=== PATIENT | female | born 1940 | race Native Hawaiian/Other Pacific Islander ===

== ENCOUNTER 2016-10-10 12:14 | Inpatient (IN) | payer OTHER ==
[~2016-10-10] VITALS: Ht 165.1 cm; Wt 66.9 kg
[~2016-10-10 12:14] MED LIST: CEFTIN250 MG OR; CEPACOL SORE TH1 LO1 MT; CIPRO500 MG PO; CLOP75TA2 PO; DEXL60CA4 PO; GLYB5TAB65 PO; LEVEMIR FLEXPEN SC; LEVOTHROID75 MCG PO; METOPROLOL25 M1 PO; MIRALAX3350 NF PO; NITR100C56 PO; NOVOLOG100 MG/ML SC; Z-PAK PO; ZOLP10TA2 PO
[2016-10-10 14:08] VITALS: BP 128/62; TEMP 99.8; Ht 165.1 cm; Wt 66.9 kg
[2016-10-10] MEDS ORDERED: INSUINJP SC (14:32)
[2016-10-10] MEDS ORDERED: AZEL137S (14:34)
[2016-10-10] MEDS ORDERED: AMBIEN5 MG PO (14:34)
[2016-10-10 14:48] LABS: PLATELET COUNT 238 K/uL (152-353)
[2016-10-10 14:53] LABS: POTASSIUM 3.7 mmol/L (3.6-5.2)
[2016-10-10 16:00] VITALS: BP 128/62; TEMP 99.8
[2016-10-10 20:00] VITALS: BP 122/40; TEMP 100.1
[2016-10-11] VITALS: BP 140/62; TEMP 98.9
[2016-10-11 04:00] VITALS: BP 136/57; TEMP 99.4
[2016-10-11 05:35] LABS: PLATELET COUNT 201 K/uL (152-353)
[2016-10-11 05:43] LABS: POTASSIUM 3.2 mmol/L (3.6-5.2); SODIUM 138 mmol/L (136-145)
[2016-10-11 08:00] VITALS: BP 143/55; TEMP 98.1
[2016-10-11 12:00] VITALS: BP 121/67; TEMP 98.9
[2016-10-11 16:00] VITALS: BP 138/60; TEMP 97.8
[2016-10-11 20:00] VITALS: BP 139/53; TEMP 98.6
[2016-10-12] VITALS: BP 143/54; TEMP 98.2
[2016-10-12 04:00] VITALS: BP 136/60; TEMP 98.9
[2016-10-12 06:55] LABS: PLATELET COUNT 187 K/uL (152-353)
[2016-10-12 06:59] LABS: POTASSIUM 4.1 mmol/L (3.6-5.2); SODIUM 138 mmol/L (136-145)
[2016-10-12 08:00] VITALS: BP 136/56; TEMP 99.5
[2016-10-12 12:00] VITALS: BP 113/40; TEMP 99.2
[2016-10-12 16:00] VITALS: BP 108/38; TEMP 99.2
[2016-10-12 20:00] VITALS: BP 150/47; TEMP 100
[2016-10-13] VITALS: BP 163/69; TEMP 99.4
[2016-10-13 04:00] VITALS: BP 136/64; TEMP 98.3
[2016-10-13 04:44] LABS: PLATELET COUNT 201 K/uL (152-353)
[2016-10-13 04:50] LABS: POTASSIUM 3.3 mmol/L (3.6-5.2); SODIUM 140 mmol/L (136-145)
[2016-10-13 08:00] VITALS: BP 128/47; TEMP 98.3
[2016-10-13 12:00] VITALS: BP 137/46; TEMP 98.3
[2016-10-13 16:00] VITALS: BP 136/47; TEMP 98.5
== END 2016-10-13 18:34 | disposition home or self-care (01) | DRG 192 ==
LOC: MED/SURG 12:14
PROVIDERS: Emergency Medicine; ADMIT Internal Medicine
DX: J44.1 Chronic obstructive pulmonary disease with (acute) exacerbation (principal); E11.9 Type 2 diabetes mellitus without complications; Z79.4 Long term (current) use of insulin; E03.8 Other specified hypothyroidism; R91.8 Other nonspecific abnormal finding of lung field
CPT/HCPCS: 36415; 80048; 80053; 82948; 83735; 85027; 87040; 87070; 87077; 87186; 87205; 94640; 94664; 94760; 96365; 96366; 96367; 96372; Q9963

== ENCOUNTER 2017-02-19 09:36 | Outpatient (CLI) | payer OTHER ==
[~2017-02-19 09:36] MED LIST changes: +AMBIEN5 MG PO; +AZEL137S; +INSUINJP SC
[2017-02-19 10:19] LABS: PLATELET COUNT 236 K/uL (152-353)
[2017-02-19 10:58] LABS: POTASSIUM 4.4 mmol/L (3.6-5.2)
== END 2017-02-19 21:53 | disposition home or self-care (01) ==
LOC: LABW 09:36
PROVIDERS: Internal Medicine
DX: E11.9 Type 2 diabetes mellitus without complications (principal)
CPT/HCPCS: 36415; 80053; 80061; 81000; 82043; 82570; 83036; 84439; 84443; 85027

== ENCOUNTER 2017-11-23 11:38 | Outpatient (CLI) | payer OTHER | END 2017-11-23 22:12 | disposition home or self-care (01) | LOC: CT 11:38 | DX: R51 Headache (principal) ==

== ENCOUNTER 2017-12-01 13:03 | Emergency (ER) | payer OTHER ==
[~2017-12-01] VITALS: Ht 165.1 cm; Wt 65.8 kg
[2017-12-01 13:05] VITALS: BP 180/59; TEMP 98
== END 2017-12-01 13:28 | disposition home or self-care (01) ==
LOC: ED 13:03
DX: S51.811A Laceration without foreign body of right forearm, initial encounter (principal); W22.8XXA Striking against or struck by other objects, initial encounter; Y92.89 Other specified places as the place of occurrence of the external cause
CPT/HCPCS: 99281

== ENCOUNTER 2018-01-21 11:48 | Outpatient (CLI) | payer OTHER | END 2018-01-21 19:32 | disposition home or self-care (01) | LOC: CT 11:48 | DX: R91.1 Solitary pulmonary nodule (principal) ==

== ENCOUNTER 2018-01-22 08:21 | Outpatient (CLI) | payer OTHER ==
[2018-01-22 08:40] LABS: PLATELET COUNT 317 K/uL (152-353)
[2018-01-22 08:57] LABS: POTASSIUM 4.2 mmol/L (3.6-5.2)
== END 2018-01-22 22:39 | disposition home or self-care (01) ==
LOC: LABW 08:21
PROVIDERS: Internal Medicine
DX: E11.41 Type 2 diabetes mellitus with diabetic mononeuropathy (principal)
CPT/HCPCS: 36415; 80053; 80061; 81000; 82043; 82570; 83036; 83735; 84439; 84443; 85027

== ENCOUNTER 2018-05-06 13:26 | Outpatient (CLI) | payer OTHER | END 2018-05-06 23:45 | disposition home or self-care (01) | LOC: LAB 13:26 | DX: N39.0 Urinary tract infection, site not specified (principal) | CPT/HCPCS: 87077; 87086; 87088; 87186 ==

== ENCOUNTER 2018-08-23 21:50 | Emergency (ER) | payer OTHER ==
[~2018-08-23] VITALS: Ht 165.1 cm; Wt 68.0 kg
[2018-08-23] MEDS ORDERED: VITAMIN B-122500 MCG SL (22:35)
[2018-08-23] MEDS ORDERED: CALCIUM CITRATE +D PO (22:36)
[2018-08-23] MEDS ORDERED: OXYC5TAB53 PO (22:37)
[2018-08-23] MEDS ORDERED: BRILINTA90 MG PO (22:38)
[2018-08-23 22:53] LABS: PLATELET COUNT 276 K/uL (152-353)
[2018-08-23 22:54] LABS: POTASSIUM 4.6 mmol/L (3.6-5.2); SODIUM 139 mmol/L (136-145)
[2018-08-24 02:27] VITALS: BP 146/70; TEMP 98.3
== END 2018-08-24 02:28 | disposition home or self-care (01) ==
LOC: ED 21:53
PROVIDERS: Emergency Medicine
DX: R07.89 Other chest pain (principal)
CPT/HCPCS: 36415; 80053; 82550; 82553; 84484; 85027; 93005; 96374; 96375; 99284; J2175; J2405

== ENCOUNTER 2018-10-26 08:15 | Outpatient (CLI) | payer OTHER ==
[~2018-10-26 08:15] MED LIST changes: +BRILINTA90 MG PO; +CALCIUM CITRATE +D PO; +OXYC5TAB53 PO; +VITAMIN B-122500 MCG SL
[2018-10-26 08:33] LABS: PLATELET COUNT 313 K/uL (152-353)
[2018-10-26 08:53] LABS: POTASSIUM 4.3 mmol/L (3.6-5.2)
== END 2018-10-26 20:28 | disposition home or self-care (01) ==
LOC: LABW 08:15
PROVIDERS: Internal Medicine
DX: E11.9 Type 2 diabetes mellitus without complications (principal); E53.8 Deficiency of other specified B group vitamins; D64.89 Other specified anemias
CPT/HCPCS: 36415; 80053; 80061; 81000; 82043; 82570; 82607; 83036; 84439; 84443; 85027

== ENCOUNTER 2018-11-24 11:58 | Outpatient (CLI) | payer OTHER | END 2018-11-24 23:29 | disposition home or self-care (01) | LOC: LABW 11:58 | DX: I50.89 Other heart failure (principal) | CPT/HCPCS: 36415; 85651 ==

== ENCOUNTER 2018-12-30 08:10 | Outpatient (CLI) | payer OTHER ==
[2018-12-30 08:32] LABS: PLATELET COUNT 385 K/uL (152-353)
[2018-12-30 08:54] LABS: POTASSIUM 4.5 mmol/L (3.6-5.2)
== END 2018-12-30 20:14 | disposition home or self-care (01) ==
LOC: LABW 08:10
PROVIDERS: Internal Medicine Gastroenterology
DX: R11.0 Nausea (principal); E53.8 Deficiency of other specified B group vitamins; D64.89 Other specified anemias; D64.9 Anemia, unspecified
CPT/HCPCS: 36415; 80053; 82607; 82728; 83516; 83540; 83550; 85027; 86140

== ENCOUNTER 2018-12-31 08:01 | Outpatient (CLI) | payer OTHER | END 2018-12-31 21:37 | disposition home or self-care (01) | LOC: CT 08:01 | DX: R10.12 Left upper quadrant pain (principal) | CPT/HCPCS: Q9963 ==

== ENCOUNTER 2019-04-27 13:48 | Outpatient (CLI) | payer OTHER | END 2019-04-27 22:30 | disposition home or self-care (01) | LOC: LAB 13:48 | DX: N39.0 Urinary tract infection, site not specified (principal) | CPT/HCPCS: 87077; 87086; 87088; 87186 ==

== ENCOUNTER 2019-05-18 15:10 | Outpatient (CLI) | payer OTHER | END 2019-05-18 19:37 | disposition home or self-care (01) | LOC: LABW 15:10 | DX: N39.0 Urinary tract infection, site not specified (principal) | CPT/HCPCS: 81002; 87077; 87086; 87088; 87186 ==

== ENCOUNTER 2020-01-31 14:20 | Outpatient (CLI) | payer OTHER | END 2020-01-31 23:58 | disposition home or self-care (01) | LOC: LAB 14:20 | DX: N39.0 Urinary tract infection, site not specified (principal) | CPT/HCPCS: 87086; 87088 ==

== ENCOUNTER 2020-02-02 08:40 | Outpatient (CLI) | payer OTHER ==
[2020-02-02 17:26] LABS: POTASSIUM 3.9 mmol/L (3.6-5.2)
== END 2020-02-02 21:47 | disposition home or self-care (01) ==
LOC: LABW 08:40
PROVIDERS: Internal Medicine
DX: E11.9 Type 2 diabetes mellitus without complications (principal)
CPT/HCPCS: 36415; 80053; 80061; 82043; 82570; 83036

== ENCOUNTER 2020-04-30 15:39 | Outpatient (CLI) | payer OTHER ==
[2020-04-30 16:05] LABS: PLATELET COUNT 242 K/uL (152-353)
== END 2020-04-30 22:18 | disposition home or self-care (01) ==
LOC: LABW 15:39
PROVIDERS: ATTEND Internal Medicine Medical Oncology
DX: D50.8 Other iron deficiency anemias (principal); E53.8 Deficiency of other specified B group vitamins
CPT/HCPCS: 36415; 84100; 85027; 85044

== ENCOUNTER 2020-05-07 13:19 | Outpatient (CLI) | payer OTHER | END 2020-05-07 19:48 | disposition home or self-care (01) | LOC: MRI 13:19 | PROVIDERS: ATTEND Internal Medicine Gastroenterology | DX: R93.3 Abnormal findings on diagnostic imaging of other parts of digestive tract (principal); D64.89 Other specified anemias | CPT/HCPCS: 36415; 82565; 84520 ==

== ENCOUNTER 2020-06-03 11:41 | Emergency (ER) | payer OTHER ==
[~2020-06-03] VITALS: Ht 165.1 cm; Wt 67.6 kg
[2020-06-03 12:50] LABS: PLATELET COUNT 139 K/uL (152-353)
[2020-06-03 12:53] LABS: POTASSIUM 3.8 mmol/L (3.6-5.2); SODIUM 132 mmol/L (136-145)
[2020-06-03 13:09] LABS: PARTIAL THROMBOPLASTIN TIME 25.6 SECONDS (24.5-33.6)
[2020-06-03 13:42] VITALS: BP 147/57; TEMP 98.4
== END 2020-06-03 13:42 | disposition home or self-care (01) ==
LOC: ED 11:41
PROVIDERS: Hospitalist
DX: H65.192 Other acute nonsuppurative otitis media, left ear (principal); J32.8 Other chronic sinusitis; R06.02 Shortness of breath; Z20.828 Contact with and (suspected) exposure to other viral communicable diseases
CPT/HCPCS: 36415; 80053; 82550; 83880; 84484; 85027; 85610; 85730; 87502; 87635; 87651; 93005; 96360; 96375; 99284; J1885; J2405; U0003

== ENCOUNTER 2020-06-26 13:56 | Outpatient (CLI) | payer OTHER ==
[2020-06-26 14:22] LABS: PLATELET COUNT 253 K/uL (152-353)
[2020-06-26 15:03] LABS: POTASSIUM 4.3 mmol/L (3.6-5.2)
== END 2020-06-26 21:36 | disposition home or self-care (01) ==
LOC: LABW 13:56
PROVIDERS: ATTEND Nurse Practitioner Family
DX: D50.8 Other iron deficiency anemias (principal); E53.8 Deficiency of other specified B group vitamins
CPT/HCPCS: 36415; 80053; 82728; 83540; 83550; 85027

== ENCOUNTER 2020-07-02 12:47 | Outpatient (CLI) | payer OTHER | END 2020-07-02 19:20 | disposition home or self-care (01) | LOC: MAMMO 12:47 | PROVIDERS: ATTEND Internal Medicine | DX: N64.4 Mastodynia (principal) | CPT/HCPCS: G0279 ==

== ENCOUNTER 2020-10-15 08:57 | Emergency (ER) | payer OTHER ==
[~2020-10-15] VITALS: Ht 165.1 cm; Wt 73.5 kg
[2020-10-15 09:21] LABS: PLATELET COUNT 287 K/uL (152-353)
[2020-10-15 10:17] LABS: SODIUM 141 mmol/L (136-145)
[2020-10-15 11:59] LABS: PARTIAL THROMBOPLASTIN TIME 23.4 SECONDS (24.5-33.6)
[2020-10-15 14:24] VITALS: BP 156/46; TEMP 98
== END 2020-10-15 14:40 | disposition short-term general hospital (02) ==
LOC: ED 08:57
PROVIDERS: Emergency Medicine Emergency Medical Services
DX: I20.0 Unstable angina (principal); Z11.52 Encounter for screening for COVID-19
CPT/HCPCS: 36415; 80053; 84484; 85027; 85610; 85730; 87635; 93005; 96365; 96366; 96375; 99284; J1644; J2175; J2405; J3490; U0003

== ENCOUNTER 2020-10-31 23:41 | Emergency (ER) | payer OTHER ==
[~2020-10-31] VITALS: Ht 165.1 cm; Wt 71.2 kg
[2020-11-01 00:09] LABS: PLATELET COUNT 275 K/uL (152-353)
[2020-11-01 00:18] LABS: POTASSIUM 4.3 mmol/L (3.6-5.2); SODIUM 136 mmol/L (136-145)
[2020-11-01 03:12] VITALS: BP 150/59; TEMP 97.2
== END 2020-11-01 03:12 | disposition home or self-care (01) ==
LOC: ED 23:41
PROVIDERS: Emergency Medicine
DX: R07.89 Other chest pain (principal); K20.80 Other esophagitis without bleeding
CPT/HCPCS: 36415; 80053; 82550; 83880; 84484; 85027; 93005; 96360; 96365; 96375; 96376; 99284; J1200; J1630; J2060; J2175; J2405; J2765; J3010; J3490; Q9963

== ENCOUNTER 2020-12-04 08:52 | Outpatient (CLI) | payer OTHER | END 2020-12-04 19:10 | disposition home or self-care (01) | LOC: RAD 08:52 → LAB 08:52 → RAD 09:00 | PROVIDERS: ATTEND Nurse Practitioner Gerontology | DX: Z13.820 Encounter for screening for osteoporosis (principal); N95.8 Other specified menopausal and perimenopausal disorders; R82.998 Other abnormal findings in urine; N39.0 Urinary tract infection, site not specified | CPT/HCPCS: 87086; 87088 ==

== ENCOUNTER 2021-04-09 13:26 | Outpatient (CLI) | payer OTHER | END 2021-04-09 19:25 | disposition home or self-care (01) | LOC: RAD 13:26 | PROVIDERS: ATTEND Nurse Practitioner Gerontology | DX: M05.79 Rheumatoid arthritis with rheumatoid factor of multiple sites without organ or systems involvement (principal); M19.041 Primary osteoarthritis, right hand; M19.042 Primary osteoarthritis, left hand ==

== ENCOUNTER 2021-07-30 16:10 | Outpatient (CLI) | payer OTHER ==
[2021-07-30 16:37] LABS: PLATELET COUNT 255 K/uL (152-353)
[2021-07-30 16:49] LABS: POTASSIUM 4.5 mmol/L (3.6-5.2)
== END 2021-07-30 19:07 | disposition home or self-care (01) ==
LOC: LAB 16:10
PROVIDERS: ATTEND Internal Medicine
DX: E11.9 Type 2 diabetes mellitus without complications (principal); R82.998 Other abnormal findings in urine
CPT/HCPCS: 80053; 80061; 81000; 82043; 83036; 84439; 84443; 85027; 87077; 87086; 87088; 87186

== ENCOUNTER 2021-08-07 08:54 | Outpatient (CLI) | payer OTHER | END 2021-08-07 19:36 | disposition home or self-care (01) | LOC: INF 08:54 | PROVIDERS: ATTEND Internal Medicine | DX: N39.0 Urinary tract infection, site not specified (principal); Z16.24 Resistance to multiple antibiotics | CPT/HCPCS: 96365; J0696 ==

== ENCOUNTER 2021-08-08 08:52 | Outpatient (CLI) | payer OTHER ==
[~2021-08-08] VITALS: Ht 152.4 cm; Wt 68.0 kg
== END 2021-08-08 21:03 | disposition home or self-care (01) ==
LOC: INF 08:52
PROVIDERS: ATTEND Internal Medicine
DX: N39.0 Urinary tract infection, site not specified (principal); Z16.24 Resistance to multiple antibiotics
CPT/HCPCS: 96365; J0696

== ENCOUNTER 2021-08-09 09:03 | Outpatient (CLI) | payer OTHER ==
[~2021-08-09] VITALS: Ht 165.1 cm; Wt 74.4 kg
== END 2021-08-09 21:36 | disposition home or self-care (01) ==
LOC: INF 09:03
PROVIDERS: ATTEND Internal Medicine
DX: N39.0 Urinary tract infection, site not specified (principal); Z16.24 Resistance to multiple antibiotics
CPT/HCPCS: 96365; J0696

== ENCOUNTER 2021-08-10 08:50 | Outpatient (CLI) | payer OTHER ==
[~2021-08-10] VITALS: Ht 165.1 cm; Wt 74.4 kg
== END 2021-08-10 19:23 | disposition home or self-care (01) ==
LOC: INF 08:50
PROVIDERS: ATTEND Internal Medicine
DX: N39.0 Urinary tract infection, site not specified (principal); Z16.24 Resistance to multiple antibiotics
CPT/HCPCS: 96365

== ENCOUNTER 2021-08-11 14:06 | Outpatient (CLI) | payer OTHER ==
[~2021-08-11] VITALS: Ht 165.1 cm; Wt 74.4 kg
== END 2021-08-11 20:41 | disposition home or self-care (01) ==
LOC: INF 14:06
PROVIDERS: ATTEND Internal Medicine
DX: N39.0 Urinary tract infection, site not specified (principal); Z16.24 Resistance to multiple antibiotics
CPT/HCPCS: 96372; J0696; J2001

== ENCOUNTER 2021-08-12 09:09 | Outpatient (CLI) | payer OTHER ==
[~2021-08-12] VITALS: Ht 165.1 cm; Wt 74.4 kg
[2021-08-12 10:15] VITALS: BP 142/49; TEMP 98.8
[2021-08-12 11:05] VITALS: BP 154/60; TEMP 98.7
== END 2021-08-12 19:00 | disposition home or self-care (01) ==
LOC: INF 09:09
PROVIDERS: ATTEND Internal Medicine
DX: N39.0 Urinary tract infection, site not specified (principal); Z16.24 Resistance to multiple antibiotics
CPT/HCPCS: 96365; J0696

== ENCOUNTER 2021-08-13 08:57 | Outpatient (CLI) | payer OTHER ==
[~2021-08-13] VITALS: Ht 165.1 cm; Wt 74.4 kg
== END 2021-08-13 19:00 | disposition home or self-care (01) ==
LOC: INF 08:57
PROVIDERS: ATTEND Internal Medicine
DX: N39.0 Urinary tract infection, site not specified (principal); Z16.24 Resistance to multiple antibiotics
CPT/HCPCS: 96365; J0696

== ENCOUNTER 2022-02-12 12:56 | Outpatient (CLI) | payer OTHER ==
[2022-02-12 13:12] LABS: PLATELET COUNT 315 K/uL (152-353)
[2022-02-12 14:11] LABS: POTASSIUM 4.2 mmol/L (3.6-5.2)
== END 2022-02-12 18:53 | disposition home or self-care (01) ==
LOC: LAB 12:56
PROVIDERS: ATTEND Internal Medicine
DX: E11.9 Type 2 diabetes mellitus without complications (principal); I25.10 Atherosclerotic heart disease of native coronary artery without angina pectoris; E03.8 Other specified hypothyroidism; M19.90 Unspecified osteoarthritis, unspecified site
CPT/HCPCS: 80053; 80061; 81002; 82043; 83036; 84439; 84443; 85027; 85652

== ENCOUNTER 2022-02-21 09:17 | Outpatient (CLI) | payer OTHER ==
[2022-02-21 10:27] LABS: PLATELET COUNT 299 K/uL (152-353)
[2022-02-21 10:41] LABS: POTASSIUM 4.1 mmol/L (3.6-5.2)
== END 2022-02-21 21:28 | disposition home or self-care (01) ==
LOC: CT 09:17
PROVIDERS: ATTEND Internal Medicine
DX: R09.1 Pleurisy (principal); R06.09 Other forms of dyspnea; Z11.52 Encounter for screening for COVID-19
CPT/HCPCS: 36415; 80053; 81002; 83880; 85027; 85379; 85652; 87635; G2023; Q9963; U0003

== ENCOUNTER 2022-03-10 10:56 | Outpatient (CLI) | payer OTHER | END 2022-03-10 19:02 | disposition home or self-care (01) | LOC: RAD 10:56 | PROVIDERS: ATTEND Internal Medicine | DX: K59.01 Slow transit constipation (principal) ==

== ENCOUNTER 2022-05-05 14:03 | Outpatient (CLI) | payer OTHER ==
[2022-05-05 14:16] LABS: PLATELET COUNT 285 K/uL (152-353)
[2022-05-05 15:01] LABS: POTASSIUM 4.1 mmol/L (3.6-5.2)
== END 2022-05-05 19:37 | disposition home or self-care (01) ==
LOC: LABW 14:03
PROVIDERS: ATTEND Physician Assistant
DX: D50.8 Other iron deficiency anemias (principal); E53.8 Deficiency of other specified B group vitamins
CPT/HCPCS: 36415; 80053; 82607; 82728; 82746; 83540; 83550; 85027

== ENCOUNTER 2022-08-13 15:16 | Emergency (ER) | payer OTHER ==
[~2022-08-13] VITALS: Ht 165.1 cm; Wt 77.1 kg
[2022-08-13 15:28] VITALS: BP 172/91; TEMP 97.6
[2022-08-13 16:56] LABS: PLATELET COUNT 234 K/uL (152-353)
[2022-08-13 17:01] LABS: POTASSIUM 4.5 mmol/L (3.6-5.2)
== END 2022-08-13 19:05 | disposition home or self-care (01) ==
LOC: ED 15:16
PROVIDERS: Emergency Medicine Emergency Medical Services
DX: R10.84 Generalized abdominal pain (principal); Z79.899 Other long term (current) drug therapy
CPT/HCPCS: 36415; 80053; 81002; 82150; 83690; 83735; 85027; 96361; 96374; 96375; 99284; J2270; J2405

== ENCOUNTER 2022-09-23 15:15 | Outpatient (CLI) | payer OTHER ==
[2022-09-23 15:58] LABS: PLATELET COUNT 380 K/uL (152-353)
[2022-09-23 16:13] LABS: POTASSIUM 3.7 mmol/L (3.6-5.2)
== END 2022-09-23 19:01 | disposition home or self-care (01) ==
LOC: LAB 15:15
PROVIDERS: ATTEND Internal Medicine
DX: E11.9 Type 2 diabetes mellitus without complications (principal); M35.3 Polymyalgia rheumatica
CPT/HCPCS: 80053; 80061; 81002; 83036; 84439; 84443; 85027

== ENCOUNTER 2022-12-04 15:39 | Outpatient (CLI) | payer OTHER | END 2022-12-04 21:57 | disposition home or self-care (01) | LOC: RAD 15:39 | PROVIDERS: ATTEND Internal Medicine | DX: S91.312D Laceration without foreign body, left foot, subsequent encounter (principal); Y92.89 Other specified places as the place of occurrence of the external cause ==

== ENCOUNTER 2022-12-31 14:39 | Outpatient (CLI) | payer OTHER | END 2022-12-31 19:10 | disposition home or self-care (01) | LOC: LAB 14:39 | PROVIDERS: ATTEND Internal Medicine | DX: T81.30XA Disruption of wound, unspecified, initial encounter (principal) | CPT/HCPCS: 87070; 87077; 87185; 87186; 87205 ==

== ENCOUNTER 2023-01-13 15:18 | Outpatient (CLI) | payer OTHER | END 2023-01-13 18:59 | disposition home or self-care (01) | LOC: LAB 15:18 | PROVIDERS: ATTEND Internal Medicine | DX: R19.7 Diarrhea, unspecified (principal); D84.89 Other immunodeficiencies | CPT/HCPCS: 83630; 87324; 87449; 87507 ==

== ENCOUNTER 2023-01-22 12:14 | Emergency (ER) | payer OTHER ==
[~2023-01-22] VITALS: Ht 165.1 cm; Wt 71.2 kg
[2023-01-22 12:18] VITALS: BP 163/69; TEMP 98.7
[2023-01-22 13:54] LABS: PLATELET COUNT 338 K/uL (152-353)
[2023-01-22 14:00] LABS: POTASSIUM 3.8 mmol/L (3.6-5.2)
== END 2023-01-22 16:07 | disposition home or self-care (01) ==
LOC: ED 12:14
PROVIDERS: Family Medicine
DX: R91.1 Solitary pulmonary nodule (principal); R10.9 Unspecified abdominal pain
CPT/HCPCS: 80053; 81002; 83690; 85027; 96361; 96374; 96375; 99284; J1885; J2765; Q9963

== ENCOUNTER 2023-02-04 10:20 | Observation (INO) | payer OTHER ==
[~2023-02-04] VITALS: Ht 165.1 cm; Wt 70.9 kg
[2023-02-04 10:26] VITALS: BP 130/75; TEMP 98.8
[2023-02-04 11:13] LABS: PLATELET COUNT 349 K/uL (152-353)
[2023-02-04 11:23] LABS: POTASSIUM 3.6 mmol/L (3.6-5.2)
[2023-02-04 12:30] VITALS: BP 146/63
[2023-02-04 14:30] VITALS: BP 146/63
[2023-02-04 18:01] VITALS: BP 153/50; TEMP 97.8; Ht 165.1 cm; Wt 70.9 kg
[2023-02-04] MEDS ORDERED: HYDROCHLOROT12.5 M1 PO (18:11)
[2023-02-04] MEDS ORDERED: CARAFATE1 GM PO (18:12)
[2023-02-04] MEDS ORDERED: PANTOPRAZOLE 40MG TA PO (18:15)
[2023-02-04] MEDS ORDERED: LEVO0.08 PO (18:16)
[2023-02-04] MEDS ORDERED: PRED5TAB3 PO (18:17)
[2023-02-04] MEDS ORDERED: TRAMADOL HYDROC50 MG PO (18:19)
[2023-02-04] MEDS ORDERED: GLYBURIDE2.5 M1 PO ×2 (18:21)
[2023-02-04] MEDS ORDERED: FAMOTIDINE MAXI20 MG PO (18:22)
[2023-02-04] MEDS ORDERED: CLOPIDOGREL75 MG PO (18:24)
[2023-02-04] MEDS ORDERED: HYDR200T3 PO ×2 (18:25→18:26)
[2023-02-04] MEDS ORDERED: INSUINJP SC (18:33)
[2023-02-04] MEDS ORDERED: LISI5TAB10 PO (18:34)
== END 2023-02-04 23:27 | disposition left against medical advice (07) ==
LOC: ED 10:20 → MED/SURG 12:42
PROVIDERS: ADMIT Family Medicine; ATTEND Internal Medicine
DX: R11.2 Nausea with vomiting, unspecified (principal); R19.7 Diarrhea, unspecified; R10.9 Unspecified abdominal pain; I25.10 Atherosclerotic heart disease of native coronary artery without angina pectoris; M35.3 Polymyalgia rheumatica; M06.8A Other specified rheumatoid arthritis, other specified site; E11.9 Type 2 diabetes mellitus without complications; E03.8 Other specified hypothyroidism; N28.89 Other specified disorders of kidney and ureter; Z53.29 Procedure and treatment not carried out because of patient's decision for other reasons; Z79.4 Long term (current) use of insulin; Z79.899 Other long term (current) drug therapy
CPT/HCPCS: 80053; 80307; 81002; 82150; 83690; 85027; 96360; 96361; 96367; 99221; 99284; G0378; J1450

== ENCOUNTER 2023-03-16 13:47 | Outpatient (CLI) | payer OTHER ==
[~2023-03-16 13:47] MED LIST changes: +CARAFATE1 GM PO; +CLOPIDOGREL75 MG PO; +FAMOTIDINE MAXI20 MG PO; +GLYBURIDE2.5 M1 PO; +HYDR200T3 PO; +HYDROCHLOROT12.5 M1 PO; +LEVO0.08 PO; +LISI5TAB10 PO; +PANTOPRAZOLE 40MG TA PO; +PRED5TAB3 PO; +TRAMADOL HYDROC50 MG PO
== END 2023-03-16 19:17 | disposition home or self-care (01) ==
LOC: RAD 13:47
PROVIDERS: ATTEND Internal Medicine Sleep Medicine
DX: R06.09 Other forms of dyspnea (principal)